=== PATIENT | female | born 2000 | race Hispanic/Latino ===

== ENCOUNTER → 2022-07-30 | Outpatient (CLI) | payer BC ==
[~2022-07-30] MED LIST: ETHI1TAB18 PO; PROP80CA2 PO; VERA120T20 PO; VERA120T92 PO
[2022-07-30 12:46] LABS: BASOPHILS % (AUTO) 0.3 % (0.0-5.0); EOSINOPHILS % (AUTO) 0.5 % (0.0-8.0); HEMATOCRIT 39.2 % (36-48); LYMPHOCYTES % (AUTO) 34.6 % (21.0-51.0); MEAN CORPUSCULAR HGB CONC 33.9 g/dL (32.0-36.0); MEAN CORPUSCULAR VOLUME 91.4 fL (79-99); MONOCYTES % (AUTO) 6.9 % (3.0-13.0); NEUTROPHILS % (AUTO) 57.4 % (40.0-77.0); PLATELET COUNT (AUTO) 254 K/uL (130-400); RED BLOOD CELL COUNT(AUTO) 4.29 MIL/uL (4.00-5.50); RED CELL DISTRIBUTION WIDTH 11.9 % (11.0-15.5)
[2022-07-30 13:31] LABS: ALBUMIN 3.4 g/dL (3.5-5.0); CREATININE 0.7 mg/dL (0.5-1.5); POTASSIUM 3.9 mmol/L (3.5-5.1); THYROID STIMULATING HORMONE 1.48 uIU/mL (0.36-3.74)
== END | disposition home or self-care (01) ==
LOC: LAB 10:02
PROVIDERS: ATTEND Internal Medicine
DX: I47.1 Supraventricular tachycardia (principal)
CPT/HCPCS: 36415; 80050; 80053; 84443; 85025

== ENCOUNTER 2022-08-17 06:01 | Day surgery (SDC) | payer BC ==
[2022-08-12 12:48] LABS: BASOPHILS % (AUTO) 0.2 % (0.0-5.0); EOSINOPHILS % (AUTO) 0.3 % (0.0-8.0); HEMATOCRIT 39.1 % (36-48); LYMPHOCYTES % (AUTO) 32.8 % (21.0-51.0); MEAN CORPUSCULAR HEMOGLOBIN 31.2 pg (27.0-33.0); MEAN CORPUSCULAR HGB CONC 35.3 g/dL (32.0-36.0); MEAN CORPUSCULAR VOLUME 88.5 fL (79-99); MONOCYTES % (AUTO) 4.4 % (3.0-13.0); PLATELET COUNT (AUTO) 252 K/uL (130-400); RED BLOOD CELL COUNT(AUTO) 4.42 MIL/uL (4.00-5.50); RED CELL DISTRIBUTION WIDTH 11.6 % (11.0-15.5); WHITE BLOOD COUNT (AUTO) 9.6 K/uL (4.8-10.8)
[2022-08-12 12:57] LABS: CREATININE 0.6 mg/dL (0.5-1.5); POTASSIUM 3.7 mmol/L (3.5-5.1)
[2022-08-12 13:08] LABS: INR 0.94 (0.85-1.15); PROTHROMBIN TIME 10.3 SEC (9.6-11.6)
[2022-08-12 13:09] LABS: PARTIAL THROMBOPLASTIN TIME 29.3 SEC (26.3-35.5)
[2022-08-16 08:52] VITALS: BP 108/66
[~2022-08-17] VITALS: Ht 154.9 cm; Wt 61.9 kg
[2022-08-17] VITALS (9 sets, daily range): BP systolic 105–123; BP diastolic 65–83
[~2022-08-17 06:01] MED LIST changes: +0.9%NACL 1000ML 1,000 ML IV SCH; -PROP80CA2 PO; -VERA120T20 PO
[2022-08-17] MEDS ORDERED: 0.9%NACL 1000ML 1,000 ML IV ONE (06:22)
[2022-08-17] MEDS ORDERED: MEPERIDINE-PF 50 MG/ML SYG ONE ×2 (07:17→08:35)
[2022-08-17] MEDS ORDERED: LIDOCAINE HCL-MPF 2% 10ML AMP IJ ONE ×2 (07:17→08:03)
[2022-08-17] MEDS ORDERED: MIDAZOLAM HCL 5 MG/ML 2ML VIAL IV ONE ×2 (07:17→10:22)
[2022-08-17] MEDS ORDERED: HEPARIN 10,000 UNIT/10ML (1,000 UNIT/ML) VIAL ONE (08:03)
[2022-08-17] MEDS ORDERED: MEPERIDINE-PF 25 MG/ML SYG ONE ×2 (08:55→09:15)
[2022-08-17] MEDS ORDERED: FENTANYL CITRATE PF 50 MCG/1 ML 2ML VIAL ONE ×3 (09:19→11:17)
[2022-08-17] MEDS ORDERED: DiphenhydrAMINE HCL 50 MG/ML VIAL ONE (09:19)
[2022-08-17] MEDS ORDERED: ADENOSINE 6MG VIAL IV ONE (09:24)
[2022-08-17] MEDS ORDERED: ESMOLOL HCL 10 MG/ML 10 ML VIAL IVP SCH (11:00)
[2022-08-17] MEDS ORDERED: METOPROLOL TARTRATE 1 MG/ML 5ML VIAL IV ONE ×2 (11:28→11:47)
[2022-08-17] MEDS ORDERED: ISOPROTERENOL HCL 0.2 MG/ML AMP/VIAL/BAG ONE (11:55)
[2022-08-17] MEDS ORDERED: PROP80CA2 PO (13:27)
[2022-08-17] MEDS ORDERED: ACETAMINOPHEN 500 MG TABLET ONE (16:10)
[2022-08-17] MEDS ORDERED: ACETAMINOPHEN 500 MG TABLET PO ONE (16:30)
== END 2022-08-17 17:20 | disposition home or self-care (01) ==
LOC: DAH 06:01
PROVIDERS: ATTEND Internal Medicine Cardiovascular Disease
DX: I47.1 Supraventricular tachycardia (principal); Z79.01 Long term (current) use of anticoagulants; Z79.899 Other long term (current) drug therapy; Z98.890 Other specified postprocedural states; Z82.49 Family history of ischemic heart disease and other diseases of the circulatory system; Z83.3 Family history of diabetes mellitus
CPT/HCPCS: 80048; 84703; 85025; 85610; 85730; 36415; 93653; 93623; 93655; C1894 ×5; C1730 ×4; C1732; J0153; J1200; J3010 ×3; J3490 ×6; J7030; J1644 ×2; J2175 ×3; J2250 ×2; A4215; A4222; A4221; A4663; A4216; A4606; A4223 ×3; 99156; 99157